=== PATIENT | female | born 1975 | race Caucasian/White ===

== ENCOUNTER 2017-07-31 07:30 | Inpatient (IN) | payer MEDICAID, OTHER ==
[2017-07-31] MEDS ORDERED: LACTATED RINGERS 1,000 ML IV SCH (08:00)
[2017-07-31] MEDS ORDERED: BICITRA PO NR (08:00)
[2017-07-31] MEDS ORDERED: REGLAN IV NR (08:00)
[2017-07-31] MEDS ORDERED: ANCEF/STERILE WATER 2 GM/20 ML 2 GM/20 ML SYRINGE IV NR (08:00)
[2017-07-31] MEDS ORDERED: PEPCID IV NR (08:00)
[2017-07-31] MEDS ORDERED: PITOCin/NS 20 UNIT/1000ML DRIP 20 UNITS/1,000 ML BAG IV SCH ×2 (08:00→11:00)
[2017-07-31 08:20] LABS: Hematocrit 39.5 % (30.3-42.9); Hemoglobin 13.6 gm/dl (10.1-14.3); Mean Corpuscular HGB Conc 35 % (30-34); Mean Corpuscular Hemoglobin 32 pg (28-32); Mean Corpuscular Volume 92 fl (79-97); Platelet Count 171 K/mm3 (140-440); Red Blood Count 4.29 M/mm3 (3.65-5.03); Red Cell Distribution Width 14.8 % (13.2-15.2); White Blood Count 8.6 K/mm3 (4.5-11.0)
--- NOTE | 2017-07-31 08:24 | Anesthesia Consultation ---
Anesthesia Consult and Med Hx Date of service: 07/31/17 - Airway Anesthetic Teeth Evaluation: Good ROM Head & Neck: Adequate Mental/Hyoid Distance: Adequate Mallampati Class: Class II Intubation Access Assessment: Probably Good - Pre-Operative Health Status ASA Pre-Surgery Classification: ASA2 Proposed Anesthetic Plan: Epidural, Spinal - Pulmonary Hx Asthma: No COPD: No Hx Pneumonia: No - Cardiovascular System Hx Hypertension: No - Central Nervous System Hx Seizures: No Hx Psychiatric Problems: No - Endocrine Hx Renal Disease: No Hx End Stage Renal Disease: No Hx Non-Insulin Dependent Diabetes: Yes (gestational diabetes) Hx Hypothyroidism: No Hx Hyperthyroidism: No - Hematic Hx Anemia: No Hx Sickle Cell Disease: No - Other Systems Hx Alcohol Use: No
--- NOTE | 2017-07-31 08:24 | Anesthesia Day of Surgery ---
Anesthesia Day of Surgery - Day of Surgery Patient Examined: Yes Patient H&P Reviewed: Yes Patient is NPO: Yes
--- NOTE | 2017-07-31 08:31 | History and Physical Report ---
History of Present Illness Date of examination: 07/31/17 Date of admission: 07/31/17 07:30 Chief complaint: Repeat C Section History of present illness: Pt is a 42yo HF EDC 08/06/17; EGA 39 1/7 weeks presents for a repeat C Section with BTL. She received care at [facility] since 10 weeks and course has been unremarkable except for previous C Section x 2, AMA and GDM followed by [facility]. records are available and GBS Past History Past Medical History: diabetes (GDM) Past Surgical History: section (x2) REGIONAL BUSINESS DEVELOPMENT MANAGER History: herpes Social history: no significant social history, - Obstetrical History Expected Date of Delivery: 08/06/17 Actual Gestation: 39 Week(s) 1 Day(s) : 5 Medications and Allergies Allergies Allergy/AdvReac Type Severity Reaction Status Date / Time No Known Allergies Allergy Verified 07/31/17 07:39 Home Medications Medication Instructions Recorded Confirmed Last Taken Type No Known Home Medications [No 07/31/17 07/31/17 Unknown History Reported Home Medications] Active Meds: Active Medications Citric Acid/Sodium Citrate (Bicitra) 30 ml PO ONCE NR Stop: 07/31/17 18:00 Diphenhydramine HCl (Benadryl) 12.5 mg IV Q2H PRN PRN Reason: Itching Famotidine (Pepcid) 20 mg IV ONCE NR Stop: 07/31/17 18:00 Cefazolin Sodium (Ancef/Sterile Water 2 Gm/20 Ml) 2 gm in 20 mls @ 80 mls/hr IV PREOP NR PRN Reason: Protocol Stop: 07/31/17 18:00 Lactated Ringer's (Lactated Ringers) 1,000 mls @ 2,250 mls/hr IV PREOP LIBRA Stop: 08/01/17 08:27 Last Admin: 07/31/17 08:23 Dose: 2,250 mls/hr Oxytocin/Sodium Chloride (Pitocin/Ns 20 Unit/1000ml Drip) 20 units in 1,000 mls @ 0 mls/hr IV TITR LIBRA PRN Reason: As Directed Influenza Virus Vaccine Quadrival (Fluarix Quad [id number](36 Mos+) 0.5 ml IM .ONCE ONE Stop: 08/01/17 12:01 Ketorolac Tromethamine (Toradol) 30 mg IV Q6H PRN PRN Reason: Pain, Moderate (4-6) Stop: 08/05/17 08:24 Metoclopramide HCl (Reglan) 10 mg IV ONCE NR Stop: 07/31/17 18:00 Morphine Sulfate (Morphine) 2.5 mg IV Q15M PRN PRN Reason: Breakthrough Pain Naloxone HCl (Narcan 0.4 Mg/1 Ml) 0.2 mg IV Q2MIN PRN PRN Reason: Res Rate </= 8 or 02 SAT < 92% Ondansetron HCl (Zofran) 4 mg IV Q8H PRN PRN Reason: Nausea And Vomiting Promethazine HCl (Phenergan) 25 mg HI Q6H PRN PRN Reason: Nausea And Vomiting Sodium Chloride (Sodium Chloride Flush Syringe 10 Ml) 10 ml IV PRN NR Review of Systems All systems: negative - Vital Signs Vital signs: Vital Signs Temp Pulse Resp BP Pulse Ox 98.2 F 85 14 131/75 99 07/31/17 08:17 07/31/17 08:17 07/31/17 08:17 07/31/17 08:17 07/31/17 08:17 Temp Pulse Resp BP Pulse Ox 98.2 F 83 14 131/75 99 07/31/17 08:17 07/31/17 08:21 07/31/17 08:17 07/31/17 08:21 07/31/17 08:17 - Physical Exam Breasts: Positive: deferred Cardiovascular: Regular rate Lungs: Positive: Clear to auscultation Abdomen: Positive: normal appearance Genitourinary (Female): Positive: normal external genitalia Vagina: Positive: normal moisture Uterus: Positive: enlarged Extremities: Positive: normal - Obstetrical FHR: category 1 Uterine Contraction Monitor Mode: External Results Result Diagrams: 07/31/17 08:00 All other labs normal. Assessment and Plan - Patient Problems (1) 39 weeks gestation of Onset Date: 07/31/17 Current Visit: Yes Status: Acute Plan to address problem: A: IUP @ 39 1/7 weeks Previous C Section x2 Gestational Diabetes Mellitus AMA Desires permanent sterilization P: Admit to L&D for a Repeat C Section with BTL (2) Previous delivery affecting Onset Date: 07/31/17 Current Visit: Yes Status: Acute (3) GDM (gestational diabetes mellitus) Onset Date: 07/31/17 Current Visit: Yes Status: Acute Qualifiers: Gestational diabetes mellitus control: diet-controlled Trimester: third trimester Qualified Code(s): O24.410 - Gestational diabetes mellitus in , diet controlled (4) AMA (advanced maternal age) multigravida 35+ Onset Date: 07/31/17 Current Visit: Yes Status: Acute Qualifiers: Trimester: third trimester Qualified Code(s): O09.523 - Supervision of elderly multigravida, third trimester
[2017-07-31] MEDS ORDERED: PHENERGAN PR PRN (09:00)
[2017-07-31] MEDS ORDERED: BENADRYL IV PRN (09:00)
[2017-07-31] MEDS ORDERED: ZOFRAN IV PRN (09:00)
[2017-07-31] MEDS ORDERED: MORPHINE IV PRN (09:00)
[2017-07-31] MEDS ORDERED: NARCAN 0.4 MG/1 ML IV PRN ×2 (09:00→11:00)
[2017-07-31] MEDS ORDERED: SODIUM CHLORIDE FLUSH SYRINGE 10 ML IV PRN ×2 (09:00→11:00)
[2017-07-31] MEDS ORDERED: MORPHINE ONE (09:03)
[2017-07-31] MEDS ORDERED: NACL 0.9% 1000 ML 1,000 ML ONE (09:35)
[2017-07-31] MEDS ORDERED: NACL 0.9% IR ONE (09:47)
[2017-07-31] MEDS ORDERED: WATER FOR IRRIG STERILE IR ONE (09:47)
[2017-07-31 10:01] LABS: Basophils % (Manual) 0 % (0.0-1.8); Blastocytes % (Manual) 0 %; Eosinophils % (Manual) 0 % (0.0-4.3)
[2017-07-31 10:02] LABS: Anisocytosis Few; Diff Status Complete
--- NOTE | 2017-07-31 10:21 | Operative Report ---
Operative Report Operative Report: Date of procedure: 07/31/2017 Pre-operative diagnosis: 1. Intrauterine at 39-1/7 weeks 2. Previous 2 3. Gestational diabetes 4. Advanced maternal age 5. Desires permanent sterilization Post-operative diagnosis: Same Procedure name(s): 1. Repeat low transverse section 2. Bilateral tubal ligation Surgeon: Shawn Estes MD Global Marketing Intern: None Anesthesia: Spinal anesthesia by Dr. Phan EBL: 700 mL's Findings: A 3557 g female Apgars 8 at 1 minute 9 at 5 minutes. Clear amniotic fluid. Normal uterus with lower uterine adhesions. Normal tubes and ovaries bilaterally. Procedure: After the patient was prepped and draped in usual sterile fashion, and after satisfactory level of epidural anesthesia was obtained, the skin knife was used to make a transverse skin incision through the previous skin scars. The incision was excised down to layer of the fascia, which was nicked in the midline and extended laterally using the Bovie cautery. The rectus muscles were dissected off the rectus fascia both superiorly and inferiorly. The rectus bellies in the midline, and the peritoneum was entered under direct visualization. The peritoneal incision was extended superiorly and inferiorly. A bladder flap was created and the bladder blade was then placed. The uterus was scored in a curvilinear linear fashion, entered in the midline revealing clear amniotic fluid. The infant's head was delivered onto the surgical field, nuchal cord 1 reduced and the oropharynx and nasopharynx were bulb suctioned. The rest of the 's body was delivered, cord was doubly clamped and cut and the infant was handed to the waiting respiratory team. Cord blood was then obtained. The placenta was manually removed from the uterus, and the uterus removed from its normal anatomical position. After gentle uterine lavage, the incision was inspected and found to be without extensions. It was then closed in 2 layers using 0 Vicryl suture in a running interlocking fashion, the second layer imbricating the first. At this point, attention was turned to the tubal ligation. First the right fallopian tube was grasped using the Talpa, and after identifying the fimbriated end the right tube, the Filshie clip was applied to the proximal portion of the tube a portion. The same procedure was performed on the left fallopian tube. The tube was grasped using a Talpa, after first identifying the fimbriated end of the left fallopian tube, the Filshie clip was applied to the proximal portion of the tube. After good hemostasis was achieved, copious amounts or irrigation was performed , and the gutters were suctioned free of blood and blood clots. The Tisseel sealant was sprayed across the uterine incision. The uterus was then returned to its normal anatomical position, and after excellent hemostasis assured, the peritoneum was re-approximated using 3-0 Vicryl suture in a running interlocking fashion, and then the rectus muscles were re-approximated using 3- 0 Vicryl suture in a [id number] configuration. The fascia was then re- approximated using 0 Vicryl suture in running interlocking fashion. The subcutaneous layer was made hemostatic using Bovie cautery, the Tisseel sealant was sprayed across the fascial incision and the skin edges re-approximated using 4-0 Vicryl suture in a sub-cuticular fashion. Patient tolerated the procedure well was transported to recovery in stable condition.
[2017-07-31] MEDS ORDERED: MYLICON PO PRN (11:00)
[2017-07-31] MEDS ORDERED: NORCO 5/325 PO PRN (11:00)
[2017-07-31] MEDS ORDERED: ANCEF/NS 1 GM/50 ML 1 GM/50 ML BAG IV SCH (11:00)
[2017-07-31] MEDS ORDERED: TUCKS PAD TP PRN (11:00)
[2017-07-31] MEDS ORDERED: D50W (25GM) Syringe IV PRN (11:00)
[2017-07-31] MEDS ORDERED: TYLENOL PO PRN (11:00)
[2017-07-31] MEDS: TORADOL IV PRN ×2 (14:50→22:04)
[2017-07-31] MEDS: D5LR 1,000 ML IV SCH ×2 (14:51→21:58)
[2017-07-31] MEDS: ceFAZolin 1 GM in NACL 0.9% 20 ML IV SCH (18:00)
[2017-07-31] MEDS ORDERED: MILK OF MAGNESIA PO PRN (22:00)
[2017-07-31] MEDS ORDERED: SENOKOT PO PRN (22:00)
[2017-07-31 23:09] LABS: Hematocrit 30.4 % (30.3-42.9); Hemoglobin 10.4 gm/dl (10.1-14.3)
[2017-08-01] MEDS: ceFAZolin 1 GM in NACL 0.9% 20 ML IV SCH (00:25)
[2017-08-01] MEDS ORDERED: BOOSTRIX IM ONE (06:00)
--- NOTE | 2017-08-01 08:46 | Progress Note ---
Assessment and Plan - Patient Problems (1) 39 weeks gestation of Onset Date: 07/31/17 Current Visit: Yes Status: Resolved (2) Previous delivery affecting Onset Date: 07/31/17 Current Visit: Yes Status: Resolved (3) GDM (gestational diabetes mellitus) Onset Date: 07/31/17 Current Visit: Yes Status: Chronic Qualifiers: Gestational diabetes mellitus control: diet-controlled Trimester: third trimester Qualified Code(s): O24.410 - Gestational diabetes mellitus in , diet controlled (4) AMA (advanced maternal age) multigravida 35+ Onset Date: 07/31/17 Current Visit: Yes Status: Chronic Qualifiers: Trimester: third trimester Qualified Code(s): O09.523 - Supervision of elderly multigravida, third trimester (5) Status post repeat low transverse section Onset Date: 08/01/17 Current Visit: Yes Status: Resolved Plan to address problem: A: S/P Repeat C Section with BTL - POD #1 Doing well Asymptomatic anemia - stable GDM - stable P: Continue RPOC Advance diet as tolerated Anticipate discharge in 24-48hrs (6) Acute blood loss anemia Onset Date: 08/01/17 Current Visit: Yes Status: Acute Subjective - Subjective Date of service: 08/01/17 Principal diagnosis: s/p Repeat C Section with BTL - POD #1 Interval history: Pt is feeling well without complaints. Bleeding improved. Tolerating a liquid diet without nausea or vomiting. Patient reports: appetite normal, voiding normally, pain well controlled, flatus , ambulating normally : doing well, nursing well Objective - Vital Signs Latest vital signs: Vital Signs Temp Pulse Resp BP BP BP Pulse Ox 08/01/17 04:15 98.3 F 81 20 102/64 97 08/01/17 00:30 98.1 F 76 18 105/65 98 07/31/17 20:30 98.1 F 73 18 112/57 97 07/31/17 16:17 98.2 F 69 20 101/59 97 07/31/17 11:30 97.8 F 67 18 117/64 07/31/17 11:18 98.3 F 66 18 118/65 96 07/31/17 10:23 98.3 F 73 16 112/47 99 07/31/17 08:53 82 128/70 Intake and Output 12/12/1208/01/17 08/01/17 22:59 06:59 14:59 Intake Total 1129.583 240 Output Total 600 400 Balance 529.583 -160 Intake: IV 889.583 D5lr 1,000 ml @ 125 mls/ 889.583 hr IV DIRECT LIBRA Rx#: [id number] Oral 240 240 Output: Urine 600 400 Indwelling Catheter 600 Void 400 Other: Total, Intake Amount 240 120 Total, Output Amount 600 400 # Voids Void 1 - Exam Breasts: Present: deferred Abdomen: Present: normal appearance, soft Uterus: Present: normal, firm, fundal height below umbilicus Extremities: Present: normal Incision: Present: normal, dry, intact, dressed - Labs Labs: Abnormal lab results 07/31/17 Range/Units 08:00 Seg Neuts % (Manual) 77.0 H (40.0-70.0) % Laboratory Tests 07/31/17 07/31/17 07/31/17 08:00 08:00 08:04 WBC 8.6 RBC 4.29 Hgb 13.6 Hct 39.5 MCV 92 MCH 32 MCHC 35 H RDW 14.8 Plt Count 171 Add Manual Diff Complete Total Counted 100 Seg Neuts % (Manual) 77.0 H Band Neutrophils % 3.0 Lymphocytes % (Manual) 16.0 Reactive Lymphs % (Man) 0 Monocytes % (Manual) 4.0 Eosinophils % (Manual) 0 Basophils % (Manual) 0 Metamyelocytes % 0 Myelocytes % 0 Promyelocytes % 0 Blast Cells % 0 Nucleated RBC % Not Reportable Seg Neutrophils # Man 6.6 Band Neutrophils # 0.3 Lymphocytes # (Manual) 1.4 Abs React Lymphs (Man) 0.0 Monocytes # (Manual) 0.3 Eosinophils # (Manual) 0.0 Basophils # (Manual) 0.0 Metamyelocytes # 0.0 Myelocytes # 0.0 Promyelocytes # 0.0 Blast Cells # 0.0 WBC Morphology Not Reportable Hypersegmented Neuts Not Reportable Hyposegmented Neuts Not Reportable Hypogranular Neuts Not Reportable Smudge Cells Not Reportable Toxic Granulation Not Reportable Toxic Vacuolation Not Reportable Dohle Bodies Not Reportable Pelger-Huet Anomaly Not Reportable Alejo Rods Not Reportable Platelet Estimate Not Reportable Clumped Platelets Not Reportable Plt Clumps, EDTA Not Reportable Large Platelets Not Reportable Giant Platelets Not Reportable Platelet Satelliting Not Reportable Plt Morphology Comment Not Reportable RBC Morphology Not Reportable Dimorphic RBCs Not Reportable Polychromasia Not Reportable Hypochromasia Not Reportable Poikilocytosis Not Reportable Anisocytosis Few Microcytosis Not Reportable Macrocytosis Not Reportable Spherocytes Not Reportable Pappenheimer Bodies Not Reportable Sickle Cells Not Reportable Target Cells Not Reportable Tear Drop Cells Not Reportable Ovalocytes Not Reportable Helmet Cells Not Reportable [place]-Hi-[place]ella Bodies Not Reportable [place] Rings Not Reportable Wander Cells Not Reportable Bite Cells Not Reportable Crenated Cell Not Reportable Elliptocytes Not Reportable Acanthocytes (Spur) Not Reportable Rouleaux Not Reportable Hemoglobin C Crystals Not Reportable Schistocytes Not Reportable Malaria parasites Not Reportable Dayo Bodies Not Reportable Hem Pathologist Commnt No POC Glucose 94 Blood Type O POSITIVE Antibody Screen Negative 07/31/17 07/31/17 07/31/17 17:07 22:07 22:51 WBC RBC Hgb 10.4 D Hct 30.4 D MCV MCH MCHC RDW Plt Count Add Manual Diff Total Counted Seg Neuts % (Manual) Band Neutrophils % Lymphocytes % (Manual) Reactive Lymphs % (Man) Monocytes % (Manual) Eosinophils % (Manual) Basophils % (Manual) Metamyelocytes % Myelocytes % Promyelocytes % Blast Cells % Nucleated RBC % Seg Neutrophils # Man Band Neutrophils # Lymphocytes # (Manual) Abs React Lymphs (Man) Monocytes # (Manual) Eosinophils # (Manual) Basophils # (Manual) Metamyelocytes # Myelocytes # Promyelocytes # Blast Cells # WBC Morphology Hypersegmented Neuts Hyposegmented Neuts Hypogranular Neuts Smudge Cells Toxic Granulation Toxic Vacuolation Dohle Bodies Pelger-Huet Anomaly Alejo Rods Platelet Estimate Clumped Platelets Plt Clumps, EDTA Large Platelets Giant Platelets Platelet Satelliting Plt Morphology Comment RBC Morphology Dimorphic RBCs Polychromasia Hypochromasia Poikilocytosis Anisocytosis Microcytosis Macrocytosis Spherocytes Pappenheimer Bodies Sickle Cells Target Cells Tear Drop Cells Ovalocytes Helmet Cells Wilkerson-Hi-Nella Bodies [place] Rings Wander Cells Bite Cells Crenated Cell Elliptocytes Acanthocytes (Spur) Rouleaux Hemoglobin C Crystals Schistocytes Malaria parasites Dayo Bodies Hem Pathologist Commnt POC Glucose 81 83 Blood Type Antibody Screen
[2017-08-01] MEDS: MOTRIN PO PRN ×2 (08:55→17:30)
[2017-08-01] MEDS: PERCOCET 5/325 PO PRN ×2 (08:56→17:30)
[2017-08-01] MEDS ORDERED: M-M-R II VACCINE SUB-Q ONE (11:00)
[2017-08-01] MEDS ORDERED: Fluarix Quad 2017-2018(36 MOS+ IM ONE (12:00)
[2017-08-01] MEDS: FEOSOL PO SCH (12:34)
[2017-08-01] MEDS: PRENATAL VITAMIN PO SCH (12:34)
[2017-08-02] MEDS: PERCOCET 5/325 PO PRN ×2 (02:00→08:20)
[2017-08-02] MEDS: PRENATAL VITAMIN PO SCH (08:21)
[2017-08-02] MEDS: FEOSOL PO SCH (08:21)
--- NOTE | 2017-08-02 08:29 | Progress Note ---
Assessment and Plan - Patient Problems (1) 39 weeks gestation of Onset Date: 07/31/17 Current Visit: Yes Status: Resolved (2) Previous delivery affecting Onset Date: 07/31/17 Current Visit: Yes Status: Resolved (3) GDM (gestational diabetes mellitus) Onset Date: 07/31/17 Current Visit: Yes Status: Chronic Qualifiers: Gestational diabetes mellitus control: diet-controlled Trimester: third trimester Qualified Code(s): O24.410 - Gestational diabetes mellitus in , diet controlled (4) AMA (advanced maternal age) multigravida 35+ Onset Date: 07/31/17 Current Visit: Yes Status: Chronic Qualifiers: Trimester: third trimester Qualified Code(s): O09.523 - Supervision of elderly multigravida, third trimester (5) Status post repeat low transverse section Onset Date: 08/01/17 Current Visit: Yes Status: Resolved Plan to address problem: A: S/P Repeat C Section with BTL - POD #2 Doing well Asymptomatic anemia - stable GDM - stable P: May go home today (6) Acute blood loss anemia Onset Date: 08/01/17 Current Visit: Yes Status: Acute Subjective - Subjective Date of service: 08/02/17 Principal diagnosis: s/p Repeat C Section with BTL - POD #2 Interval history: Pt is feeling well without complaints. Bleeding improved. Tolerating a reg diet without nausea or vomiting, ambulating and voiding without difficulty. Wants to go home today. Patient reports: appetite normal, voiding normally, pain well controlled, flatus , ambulating normally, no nauseated [place]: doing well, nursing well Objective - Vital Signs Latest vital signs: Vital Signs Temp Pulse Resp BP 08/02/17 00:25 98.6 F 77 18 101/64 08/01/17 16:00 98.2 F 69 18 96/54 Intake and Output 08/01/17 08/02/17 08/02/17 22:59 06:59 14:59 Intake Total 120 300 Balance 120 300 Intake: Oral 120 Intake, Free Water 300 Other: Total, Intake Amount 120 # Voids Void 1 - Exam Breasts: Present: deferred Cardiovascular: Present: Regular rate Lungs: Present: Clear to auscultation Abdomen: Present: normal appearance, soft Uterus: Present: normal, firm, fundal height below umbilicus Extremities: Present: normal Incision: Present: normal, dry, intact, dressed - Labs Labs: Abnormal lab results 08/01/17 Range/Units 16:47 POC Glucose 115 H (70-105)
--- NOTE | 2017-08-02 09:08 | Discharge Summary ---
Providers - Providers Date of Admission: 07/31/17 07:30 Date of discharge: 08/02/17 Attending physician: NADYA VERONICA Primary care physician: NADYA VERONICA Hospitalization Reason for admission: section, IUP at term Delivery: Procedure: section, bilateral tubal ligation, repeat low transverse Episiotomy: none Laceration: none Incision: normal, dry, intact Other procedures: none complications: none Discharge diagnosis: IUP at term delivered [place] baby: female Hospital course: Pt is a 42yo HF EDC 08/06/17; EGA 39 1/7 weeks who presented for a repeat C Section with BTL. She received care at [facility] since 10 weeks and course has been unremarkable except for previous C Section x 2, AMA and GDM followed by [facility]. She underwent an uncomplicated repeat C Section with BTL and tolerated the procedure well. By POD #2 she was tolerating a reg diet without nausea or vomiting, ambulating and voiding without difficulty, and BS's were WNL. She was therefore discharged to home on POD #2 in stable condition. Condition at discharge: Good Disposition: DC-01 TO HOME OR SELFCARE - Discharge Diagnoses (1) 39 weeks gestation of Status: Resolved (2) Previous delivery affecting Status: Resolved (3) GDM (gestational diabetes mellitus) Status: Chronic Qualifiers: Gestational diabetes mellitus control: diet-controlled Trimester: third trimester Qualified Code(s): O24.410 - Gestational diabetes mellitus in , diet controlled (4) AMA (advanced maternal age) multigravida 35+ Status: Chronic Qualifiers: Trimester: third trimester Qualified Code(s): O09.523 - Supervision of elderly multigravida, third trimester (5) Status post repeat low transverse section Status: Resolved (6) Acute blood loss anemia Status: Resolved Plan - Discharge Medications Prescriptions: Ferrous Sulfate [Feosol 325 MG tab] 325 mg PO BID #60 tablet HYDROcodone/APAP 5-325 [[place] 5/325] 1 each PO Q6HR PRN #30 tablet PRN Reason: Pain Ibuprofen [Motrin] 800 mg PO Q8HR PRN #30 tablet PRN Reason: Moder Pain Unrelieved By [place] Vit Calc,Iron,Folic [ Vitamins] 1 each PO DAILY #30 tablet - Provider Discharge Summary Activity: routine, no sex for 6 weeks, no heavy lifting 4 weeks, no strenuous exercise Diet: routine Instructions: routine Additional instructions: [] Smoking cessation referral if applicable(refer to patient education folder for contact #) [] Refer to [facility]'s [facility] Booklet Call your doctor immediately for: * Fever > 100.5 * Heavy vaginal bleeding ( >1 pad per hour) * Severe persistent headache * Shortness of breath * Reddened, hot, painful area to leg or breast * Drainage or odor from incision. * Keep incision clean and dry at all times and follow doctor's instructions regarding bathing/showering - Follow up plan Follow up: NADYA VERONICA MD [Primary Care Provider] - 14 Days
[2017-08-02] MEDS: MOTRIN PO PRN (12:01)
[2017-08-02 14:54] VITALS: BP 107/68
== END 2017-08-02 12:20 | disposition home or self-care (01) | DRG 765 ==
LOC: APU 07:30 → OB 12:04
PROVIDERS: ADMIT Obstetrics & Gynecology; ATTEND Obstetrics & Gynecology
PROC: 10D00Z1 Extraction of Products of Conception, Low, Open Approach (ICD-10-PCS; principal; 2017-07-31)
PROC: 0UL70CZ Occlusion of Bilateral Fallopian Tubes with Extraluminal Device, Open Approach (ICD-10-PCS; 2017-07-31)
PROC: 3E0234Z Introduction of Serum, Toxoid and Vaccine into Muscle, Percutaneous Approach (ICD-10-PCS; 2017-08-01)
DX: O34.211 Maternal care for low transverse scar from previous cesarean delivery (principal); D62 Acute posthemorrhagic anemia; O99.03 Anemia complicating the puerperium; O24.429 Gestational diabetes mellitus in childbirth, unspecified control; O99.824 Streptococcus B carrier state complicating childbirth; Z30.2 Encounter for sterilization; Z3A.39 39 weeks gestation of pregnancy; Z37.0 Single live birth; O09.523 Supervision of elderly multigravida, third trimester; Z23 Encounter for immunization
CPT/HCPCS: 36415; 82962; 85007; 85014; 85018; 85025; 86850; 86900; 86901; 90471; 90686; 90715; 99211; C9250; G0463; J0690; J1885; J2270; J2590; J2765; J7030; J7120; J7121